=== PATIENT | female | born 1950 | race Caucasian/White ===

== ENCOUNTER → 2016-08-24 | Outpatient (CLI) | payer MEDICARE, BC ==
[~2016-08-24] MED LIST: NITROSTAT 0.425 TAB PO
== END ==
LOC: MRI 12:22
DX: G45.9 Transient cerebral ischemic attack, unspecified (principal); R41.0 Disorientation, unspecified; H53.129 Transient visual loss, unspecified eye; R42 Dizziness and giddiness; E04.1 Nontoxic single thyroid nodule
CPT/HCPCS: 36415; 70553; 82565; 84520; 93880; A9577

== ENCOUNTER → 2016-08-27 | Outpatient (CLI) | payer MEDICARE, BC | LOC: CT 08:19 | DX: R31.29 Other microscopic hematuria (principal) | CPT/HCPCS: J7050; Q9962 ==

== ENCOUNTER → 2016-09-15 | Outpatient (CLI) | payer MEDICARE, BC | LOC: US 14:56 | DX: E04.1 Nontoxic single thyroid nodule (principal) | CPT/HCPCS: 76536 ==

== ENCOUNTER → 2020-05-17 | Outpatient (CLI) | payer MEDICARE, BC ==
[~2020-05-17] MED LIST changes: +AMBIEN10 MG PO; +ASPIRIN CHEWABL81 MG PO; +CENTRUM SILVER PO; +CENTRUM SILVER1 EAC1 PO; +COREG6.25 MG PO; +DIOVAN160 MG PO; +ZANTAC300 MG PO; +ZOLPIDEM TARTRA10 MG PO
== END ==
LOC: KOH-I 13:49
DX: M25.561 Pain in right knee (principal); M22.2X1 Patellofemoral disorders, right knee
CPT/HCPCS: 73562